=== PATIENT | male | born 1935 | race Caucasian/White ===

== ENCOUNTER 2017-06-13 11:38 | Inpatient (IN) | payer MEDICARE, OTHER ==
[~2017-06-13] VITALS: Ht 177.8 cm; Wt 88.2 kg
[2017-06-13] VITALS (7 sets, daily range): BP systolic 108–137; BP diastolic 52–106
--- NOTE | ~2017-06-13 | PR ---
[place], [place] PROGRESS NOTE NAME: ELLEN ARRIETA UNIT #: [id number] ROOM: 511 DOCTOR: TOBI FISCHER MD BIRTHDATE: [birth year] DOS: SUBJECTIVE: The patient looks much better than yesterday, more awake and alert and able to converse properly. Even during the night, he did get slightly confused, the Reza catheter causing some hematuria, also pulled out his IV and had to be given Haldol x2. He denies having any chest pains or palpitations. His legs do hurt, but otherwise he feels good. OBJECTIVE: VITAL SIGNS: Blood pressure is 117/98, pulse of 117, respirations 22, temperature 97.4. LUNGS: Diminished breath sounds. No wheezes, rales or rhonchi heard. HEART: Regular. ABDOMEN: Obese, soft, nontender. EXTREMITIES: Without any edema. ASSESSMENT AND PLAN: 1. Right lower lobe pneumonia with small pleural effusion. It is parapneumonic on IV antibiotics. Repeat chest x-ray to be ordered today to see whether this is clearing. 2. Acute systolic congestive heart failure from cardiomyopathy, already on p.o. diuretics. 3. Elevated troponin. Medical management only since the patient is not wanting any recent . 4. Hematuria, possibly from trauma. I will leave the Reza catheter and I am afraid if I remove it, then a false lumen may have been created by the trauma, so will continue irrigating as needed and once it is cleared, will put a Reza catheter hopefully in the morning. 5. Metabolic encephalopathy, multifactorial, to be managed with a low dose of Risperdal p.r.n. TOBI FISCHER MD CM:PNTRANS [id number] TOBI FISCHER MD 06/16/17 1431 interface
--- NOTE | ~2017-06-13 | PR ---
[place], [place] PROGRESS NOTE NAME: [facility]A [id number] UNIT #: [id number] ROOM: 509 DOCTOR: LORNA SCRUGGS MD BIRTHDATE: [birth year] DOS: The patient was seen at his bedside with his granddaughter in attendance. SUBJECTIVE: The patient was sleeping, but lying almost flat and breathing easily. I spent most of my time discussing the patient's situation with his granddaughter. He continues to be treated for pneumonia. His lungs have cleared to a great degree. He is also being diuresed and his pedal edema has essentially resolved. Neck veins have also improved. PHYSICAL EXAMINATION: VITAL SIGNS: Today, his pulse is 70 and regular, blood pressure is 94/60. He weighs 86.2 kg and has a body mass index of 27.3. NECK: Supple. He has no jugular distention or hepatojugular reflux. Carotids are full. LUNGS: Respirations are unlabored. He has decreased breath sounds at the bases. HEART: Has a regular rhythm. Heart tones are distant. There is no jugular distention. EXTREMITIES: Showed trace edema bilaterally. LABORATORY DATA: Hemoglobin is 14.7 with hematocrit 50.9, there are 11,200 white cells and 86,000 platelets present. Sodium is 139, potassium 4.7, CO2 of 42, and chloride 93, BUN is 35 and creatinine 1.09. Troponin levels remained mildly elevated at 0.139 three days ago. The patient's echocardiogram on 06/14/2017 showed a mildly dilated left ventricle with globally hypokinetic wall motion and severe septal hypokinesis along with inferoseptal akinesis. The ejection fraction was 30%. Diastole was abnormal with grade 1 diastolic dysfunction. The left atrium was moderately dilated. The aortic valve was sclerotic with normal leaflet excursion. There was decreased mitral excursion consistent with a low flow state. IMPRESSION: 1. Acute respiratory failure, improving. 2. Right middle lobe pneumonia. 3. Ischemic cardiomyopathy. Current ejection fraction is about 30%. 4. Acute on chronic combined systolic and diastolic congestive heart failure. The patient has improved with diuresis. 5. Renal insufficiency, improved with diuresis. PLAN: We have no plans to do any further evaluation of the patient. No advance cardiac diagnostics or therapeutics are being considered. He is improving and we will continue to follow him intermittently. I thank Dr. Mata for asking our advice regarding his care. [place], [place] PROGRESS NOTE NAME: JulietaMiloANATOLIY,ELLEN UNIT #: [id number] ROOM: 509 DOCTOR: LORNA SCRUGGS MD BIRTHDATE: [birth year] LORNA SCRUGGS MD CM:SHONDA [id number] LORNA SCRUGGS MD 06/17/17 1525 interface
--- NOTE | ~2017-06-13 | PR ---
[place], [place] PROGRESS NOTE NAME: ELLEN ARRIETA UNIT #: [id number] ROOM: 511 DOCTOR: ANA SHINE MD BIRTHDATE: [birth year] DOS: 06/14/2017 SUBJECTIVE: Patient on BiPAP, occasionally gets restless, but is more alert and oriented today. OBJECTIVE: VITAL SIGNS: Blood pressure 115/85, heart rate 87 beats per minute, breathing 20 times per minute, temperature 98 degrees Fahrenheit. GENERAL APPEARANCE: Generalized weakness and shortness of breath. HEENT AND NECK: Exam within normal limits. CARDIOVASCULAR SYSTEM: Heart rate is regular in rate and rhythm. S1 and S2 normally audible. LUNGS: Decreased breath sounds on lung auscultation. ABDOMEN: Soft, nontender. No obvious organomegaly. Bowel sounds are present. EXTREMITIES: Without significant cyanosis or edema. IMPRESSION: 1. Patient with acute systolic type congestive heart failure, responding to diuresis. Cardiology following. 2. Patient with acute exacerbation of severe underlying chronic obstructive pulmonary disease with nicotine smoke dependence and CO2 narcosis, is being treated with BiPAP. His orientation has improved. 3. Right middle lobe pneumonia, being treated with antibiotics. 4. History of defibrillator and pacemaker placement, chronic systolic type congestive heart failure with 30% ejection fraction. 5. Coronary artery bypass graft x 4 in 1991 with some elevation of cardiac enzymes. Patient maintains a DNR-CC code status and was very active and functional until a few days ago when he went into respiratory failure. Patient was living by himself and also driving and had complete functions with activities of daily living, was completely independent. We are giving him a chance to recover from the respiratory failure, otherwise all the support including BiPAP would be withdrawn and he can be put on end-of-life care if family agrees. [place], [place] PROGRESS NOTE NAME: ELLEN ARRIETA UNIT #: [id number] ROOM: 511 DOCTOR: ANA SHINE MD BIRTHDATE: [birth year] ANA SHINE MD CM:PNTRANS 22 6 ANA SHINE MD 06/15/17225 interface
--- NOTE | ~2017-06-13 | PR ---
[place], [place] PROGRESS NOTE NAME: ELLEN ARRIETA UNIT #: [id number] ROOM: 509 DOCTOR: ANA SHINE MD BIRTHDATE: [birth year] DOS: 06/19/2017 SUBJECTIVE: The patient was discharged to [facility] yesterday, but it did not happen since there were some issues with insurance. OBJECTIVE: GENERAL APPEARANCE: The patient is more awake and alert. He is still confused, but eating his breakfast. VITAL SIGNS: Blood pressure 103/54, heart rate 61 beats per minute, breathing 16 times per minute, temperature 98 degrees Fahrenheit. HEENT AND NECK: Exam within normal limits. CARDIOVASCULAR SYSTEM: Heart rate is regular in rate and rhythm. S1 and S2 normally audible. LUNGS: Clear to auscultation. ABDOMEN: Soft, nontender. No obvious organomegaly. Bowel sounds are present. EXTREMITIES: Without significant cyanosis or edema. NEUROLOGIC: generalized and mental confusion. IMPRESSION: 1. The patient had adult failure to thrive going to nursing facility with hospice care. He maintained with DNR comfort care code status. The patient's condition improves. He can always be removed from hospice care. At the hospital, he was unable to undergo physical therapy because of extreme mental confusion and lack of understanding, but if he improves at intermediate, he can be started on physical therapy depending on his condition. 2. Mental confusion and delirium still present, although the patient is more alert today. 3. Right middle lobe pneumonia and treated with antibiotics. 4. Ischemic cardiomyopathy with 30% left ventricular ejection fraction. 5. Combined systolic and diastolic type compensated congestive heart failure now. The patient was treated with diuresis for acute congestive heart failure during this admission. 6. Coronary artery disease without chest pains. 7. Defibrillator and pacemaker placement. 8. Sepsis resolved. [place], [place] PROGRESS NOTE NAME: ELLEN ARRIETA UNIT #: [id number] ROOM: 509 DOCTOR: ANA SHINE MD BIRTHDATE: [birth year] ANA SHINE MD CM:PNTRANS [id number] ANA SHINE MD 06/19/17 1352 interface
--- NOTE | ~2017-06-13 | WRIGHTHP ---
[place], [place] PATIENT HISTORY AND PHYSICAL EXAM NAME: [facility]A [id number] UNIT #: [id number] ROOM: 511 DOCTOR: ANA SHINE MD BIRTHDATE: [birth year] DOS: 06/13/2017 HISTORY OF PRESENT ILLNESS: The patient is an 81-year-old gentleman with a past medical history of: 1. COPD and chronic respiratory failure. 2. Continued nicotine smoke dependence. 3. Hypertension. 4. Hyperlipidemia. 5. Systolic type CHF. 6. BPH and urinary retention. The patient presented to [facility] Emergency Department with increasing shortness of breath starting this morning. The patient's pulse ox was 89% at room air. The patient was breathing fast and breathing was labored. Abdomen was tense and distended. The patient was evaluated in the Emergency Department and recommended for admission and further management for acute respiratory failure with hypoxemia from congestive heart failure, pneumonia and acute exacerbation of COPD. After admission, the patient is becoming more alert according to the family. No complaints of any recent chest pain. No other GI or urinary symptoms. REVIEW OF SYSTEMS: LUNGS: Increasing shortness of breath. GASTROINTESTINAL: No nausea, vomiting, diarrhea or constipation. CARDIOVASCULAR: No chest pains or palpitations. PHYSICAL EXAMINATION: GENERAL: The patient is awake, alert, confused, somewhat agitated and restless. VITAL SIGNS: Blood pressure 112/86, heart rate of 80 beats per minute, breathing 22 times per minute, temperature 98 degrees Fahrenheit. HEENT AND NECK: Extraocular movements are intact. Sclerae are anicteric. Oral mucosa is moist and clean. No obvious facial weakness. Neck is supple without any lymphadenopathy. No thyromegaly. No JVD. No carotid arterial bruits. LUNGS: Decreased breath sounds and expiratory wheezing all over. CARDIOVASCULAR SYSTEM: Heart rate is regular in rate and rhythm. S1 and S2 normally audible. No significant murmur or any other abnormal cardiac sounds. ABDOMEN: Soft, nontender. No obvious organomegaly. Bowel sounds are present. No obvious herniation. EXTREMITIES: All extremities are very cold, but pulses are present, although weak. CENTRAL NERVOUS SYSTEM: Generalized weakness, mental confusion. LABORATORY DATA: Blood gas showing pH of 7.28, pCO2 of 66, saturating 97%. First set of cardiac enzymes was 0.136, elevated. BUN and creatinine of 63 and 1.4. ProBNP of 7000. Normal CBC. Lactic acid level was normal at 1.8. IMPRESSION: 1. The patient presenting with acute exacerbation of chronic obstructive pulmonary disease and respiratory failure with CO2 narcosis. The patient to be started on BiPAP, DuoNeb, Solu-Medrol to help him breathe better. [place], [place] PATIENT HISTORY AND PHYSICAL EXAM NAME: ELLEN ARRIETA UNIT #: [id number] ROOM: [facility] DOCTOR: ANA SHINE MD BIRTHDATE: [birth year] 2. Right middle lobe pneumonia, to be treated with IV Zosyn and azithromycin and followed closely. I will also get a sputum culture. 3. Acute systolic type congestive heart failure, with history of defibrillator placement, with 30% left ventricular ejection fraction. The patient to be closely monitored and treated. Property Field Adjuster, Dr. Noble has been consulted. 4. History of defibrillator and pacemaker placement. 5. Mixed hyperlipidemia. 6. Coronary artery bypass graft x 4 in 1991. 7. History of chronic obstructive pulmonary disease. 8. Anemia of chronic disease. 9. History of coronary artery disease and myocardial infarction. 10. History of benign essential hypertension. Monitor blood pressures and treat accordingly. One hour time was spent with the patient and discussing situation with the family. The patient wants to maintain a DNR/comfort care code status for now, but in case more aggressive treatment is needed for a short time, family has agreed to changing his code status with DNR arrest only if needed. ANA SHINE MD CM:HISPHYS:PATIENT HISTORY AND PHYSICAL EXAMINATION [phone] ANA SHINE MD 06/13/17 183 interface
--- NOTE | ~2017-06-13 | PR ---
[place], [place] PROGRESS NOTE NAME: ELLEN ARRIETA UNIT #: [id number] ROOM: 509 DOCTOR: TOBI FSICHER MD BIRTHDATE: [birth year] DOS: SUBJECTIVE: The patient became more confused during the night again, pulled out the catheter, caused more bleeding. At this time, irrigation did not work, so a 3-way catheter was placed in this morning. The catheter is draining clear urine, slightly blood tinged, but no clots were noted. He is much more awake and alert and oriented, even though he does appear to be sleepy, possibly side effect of the Haldol that was given. OBJECTIVE: VITAL SIGNS: Blood pressure is 112/59, pulse of 70, respirations 18, temperature 97.3. LUNGS: Diminished breath sounds, clearer this morning. HEART: Regular. ABDOMEN: Obese, soft, nontender. EXTREMITIES: No edema. ASSESSMENT AND PLAN: 1. Acute systolic congestive heart failure, already on diuretics and maximal treatment plan for left ventricular dysfunction. 2. Chronic obstructive pulmonary disease with mild exacerbation, which has improved. We will discontinue IV steroids, place him on p.o. prednisone. 3. Right middle lobe pneumonia with small effusion, already on antibiotics. Chest x-ray shows slow improvement. The patient does not have a cough or fever. Elevated white cell count is most likely steroid effect. 4. Adult failure to thrive. The patient may benefit from placement for short term rehabilitation. Social service and PT, OT has been consulted. 5. Hematuria, possibly from continued trauma. We will discontinue catheter later today. 6. Elevated troponin. Continue medical management. TOBI FISCHER MD CM:PNTRANS [phone] [id number] TOBI FISCHER MD 06/17/1704 interface
--- NOTE | ~2017-06-13 | DS ---
[place], [place] DISCHARGE SUMMARY NAME: ELLEN ARRIETA UNIT #: [id number] ROOM: 509 DOCTOR: ANA SHINE MD BIRTHDATE: [birth year] DOS: 06/18/2017 DISCHARGE DIAGNOSES: 1. Adult failure to thrive and unable to recover with adequate treatment for pneumonia and congestive heart failure and respiratory failure. 2. Mental confusion and delirium. 3. Right middle lobe pneumonia. 4. Ischemic cardiomyopathy with 30% left ventricular ejection fraction. 5. Acute on chronic combined systolic and diastolic type congestive heart failure. 6. Coronary artery disease of [place] vessel, with coronary artery bypass graft, 4 grafts in 1991. 7. Defibrillator and pacemaker placement. 8. Chronic obstructive pulmonary disease exacerbation. 9. Continued nicotine smoke dependence. 10. Benign essential hypertension. 11. Mixed hyperlipidemia. 12. Benign prostatic hypertrophy and acute urinary retention, requiring Reza catheter. 13. Thrombocytopenia 14. Sepsis 15. Pneumonia 16. Respiratory failure 17. Leukocytosis 18. Hypotension. HOSPITAL COURSE: The patient presented to the [facility] with hypoxemia and acute over chronic respiratory failure with right middle lobe pneumonia. The patient was admitted and treated with BiPAP, oxygen, bronchodilators and his condition did not improve despite of adequate treatment. The patient was seen by advanced manufacturing associate, Dr. Dickerson. Acute both systolic and diastolic type congestive heart failure with 30% left ventricular ejection fraction, was treated with diuresis and followed by Cardiology. Coronary artery disease, with 4-vessel bypass grafts in 1991, minimal elevation of cardiac enzymes. Exacerbation of COPD, treated with bronchodilators, oxygen, antibiotics and improved. History of benign essential hypertension, with controlled blood pressures. Acute urinary retention, treated with straight cath and now with Reza catheter to keep him comfortable. The patient was treated extensively as mentioned above and his condition has not improved. He still remains confused and agitated and was treated with Haldol on as needed basis, oxygen, breathing treatments, antibiotics. As the patient's [place], [place] DISCHARGE SUMMARY NAME: ELLEN ARRIETA UNIT #: [id number] ROOM: 509 DOCTOR: ANA SHINE MD BIRTHDATE: [birth year] condition was not improving and he has marked organ failure, the patient's durable power of health care attorney and his daughter has requested hospice care at the half-way. [facility] to follow the patient. Urine cultures were negative. White cell count 11,000, hemoglobin 14.7, platelets 86,000. DISCHARGE MANAGEMENT: Morphine 10 mg every hour concentrate as needed for pain and agitation, Haldol 1 mg every 4 hours as needed oral or IM for agitation, Coreg 3.125 mg b.i.d., furosemide 40 mg daily, lisinopril 5 mg a day, DuoNeb every 4 hours and Pulmicort 0.5 mg b.i.d., Flomax 0.4 mg a day. Consult [facility] to follow. One hour time spent in patient discharge, procedures, discussing situation with durable power of health care attorney and daughter and arranging for patient to be discharged to half-way. ANA SHINE MD CM:NANCY [phone] ANA SHINE MD 06/18/172125 interface
--- NOTE | ~2017-06-13 | PR ---
[place], [place] PROGRESS NOTE NAME: ELLEN ARRIETA UNIT #: [id number] ROOM: 511 DOCTOR: TOBI FISCHER MD BIRTHDATE: [birth year] DOS: SUBJECTIVE: The patient is quite sedated, does not respond to call. He moaned ____ rolled over slightly. OBJECTIVE: VITAL SIGNS: Blood pressure is 109/63, pulse of 90s, respirations 18-20, temperature 97.9. LUNGS: Diminished breath sounds. A few scattered wheezes heard. HEART: Regular. ABDOMEN: Obese, soft, nontender. EXTREMITIES: Without any edema. ASSESSMENT AND PLAN: 1. Acute hypoxic respiratory failure. The patient has been on BiPAP with Ativan, which possibly is keeping him sedated and needing the BiPAP. We will discontinue Ativan and try to take him off the BiPAP and see how he does. His current code status is DNR-CC arrest, so BiPAP is unnecessary. 2. Chronic obstructive pulmonary disease with chronic respiratory failure, increase IV steroids. 3. Right middle lobe pneumonia with parapneumonic pleural effusion, on IV antibiotics, possible gram-negative. 4. Cardiomyopathy with ejection fraction of 30%, maximize medications. No evidence of acute congestive heart failure. TOBI FISCHER MD CM:PNTRANS [id number] TOBI FISCHER MD 06/15/17 1158 interface
--- NOTE | ~2017-06-13 | CON ---
[place], [place] REPORT OF CONSULTATION NAME: ELLEN ARRIETA UNIT #: [id number] ROOM: 511 DOCTOR: LORNA SCRUGGS MD BIRTHDATE: [birth year] DOS: 06/13/2017 CARDIOLOGY CONSULTATION REASON FOR CONSULTATION: Respiratory failure, history of heart failure. HISTORY OF PRESENT ILLNESS: The patient is an 81-year-old man who is known to have a history of heart failure, obstructive lung disease, continued cigarette abuse, hyperlipidemia, and hypertension. He is typically followed by the [facility] and also followed by Dr. Austin Brown, a pump tester at the [facility] [place] in [place]. I got most of the history from the chart and from his granddaughter who is his power of magnetic grinder operator. The patient has been chronically ill, but remains very active. He lives independently and drives daily to the half-way where his , who has dementia, resides. He takes her out frequently and helps manage her welfare on a day-to-day basis. The old records indicate that he is status post bypass surgery and has had several myocardial infarctions. He also does have a biventricular ICD in place. An echocardiogram obtained on 06/28/2016 showed a mildly dilated left ventricle with moderate concentric left ventricular hypertrophy. Overall systolic function was moderately impaired with an estimated ejection fraction of 30%. The right atrium was enlarged. The left atrium was severely enlarged. There was moderate aortic stenosis with a mean gradient of 9 mmHg and Doppler evidence for mildly elevated right ventricular systolic pressures. The patient apparently was well a little over a week ago. One week ago today, his granddaughter went to visit him and found that he was very dyspneic. She also noted that there was blood in the toilet and he admitted that he had been urinating blood. The granddaughter discussed ER evaluation, but he refused. He continued to refuse despite multiple requests from his granddaughter until today. He finally did admit that he was feeling poorly and would consent to come to the Emergency Room. However, he did insist that his status be comfort care only. The patient's chest x-ray does show evidence for heart failure and a right middle lobe pneumonia. He is being treated with antibiotics and BiPAP. We were asked to help with the management of his cardiac status and heart failure. PAST MEDICAL HISTORY: Includes; 1. Atherosclerotic heart disease. 2. History of previous bypass surgery and multiple myocardial infarctions. 3. Biventricular ICD in place. 4. History of hypertension. 5. History of hyperlipidemia. 6. History of COPD with ongoing cigarette abuse. 7. Chronic systolic congestive heart failure. 8. Recurrent respiratory failure. MEDICATIONS PRIOR TO ADMISSION: Atorvastatin 40 mg daily, furosemide 20 mg daily, lisinopril 10 mg daily, magnesium chloride 64 mg daily, and tamsulosin 0.4 mg daily. [place], [place] REPORT OF CONSULTATION NAME: ELLEN ARRIETA UNIT #: [id number] ROOM: [facility] DOCTOR: LORNA SCRUGGS MD BIRTHDATE: [birth year] ALLERGIES: The patient has no known drug allergies. REVIEW OF SYSTEMS: Impossible. The patient is on BiPAP and mildly sedated. He is unable to answer any questions. SOCIAL HISTORY: The patient is . His has dementia and lives in a half-way. He lives alone, but spends a lot of time with his . The patient is a smoker and continues to smoke at least a half pack of cigarettes a day. PHYSICAL EXAMINATION: GENERAL: The patient is an elderly white male who is sedated and on BiPAP. VITAL SIGNS: Pulse is 80 and has frequent premature contractions, blood pressure is 112/86, he is afebrile. He weighs 103.4 kg and has a body mass index of 32.7. HEENT: Normocephalic, atraumatic. Extraocular muscles appear to be intact. He is on BiPAP. Oral mucosa is moist. NECK: Supple. He does have jugular distention almost to the angle of the jaw when sitting in a 45-degree angle. Carotids are full. I heard no bruits. LUNGS: Respirations are per BiPAP. He appears comfortable at this time, but is sedated. He does have markedly prolonged expiratory phases and scattered wheezes with crackles at the right base. CARDIOVASCULAR: His heart has distant tones. He has a regular rhythm with frequent premature beats. An S4 gallop was present on occasion. I could not hear an S3. I could not hear any murmurs. The PMI is slightly displaced laterally. ABDOMEN: Soft and normally active. It is nontender. EXTREMITIES: Show 2+ edema of the shins and calves bilaterally. Pedal pulses are absent. LABORATORY DATA: I reviewed his electrocardiogram. He shows sinus rhythm with ventricular pacing. He has very frequent premature ventricular contractions. Hemoglobin is 16.2 with hematocrit 54.7. There are 8600 white cells and 122,000 platelets. Sodium is 141, potassium 5.1, BUN 63, creatinine 1.36. ABG show a pH of 7.286 with a pCO2 of 66.2, a pO2 of 93.7, and a bicarb of 30.7. IMPRESSIONS: 1. Acute respiratory failure. 2. Right middle lobe pneumonia. 3. History of ischemic cardiomyopathy. 4. [id number] combined systolic and diastolic congestive heart failure. PLAN: The patient has declared that he wants to be a comfort care. For now, we will continue supportive measures with BiPAP, antibiotics and I will increase his diuresis. An echo has already been ordered. We will review that when it is available. I will also request old records from his regular pump tester, Dr. Austin Brown, in the [facility] [place] in [place]. [place], [place] REPORT OF CONSULTATION NAME: ELLEN ARRIETA UNIT #: [id number] ROOM: [facility] DOCTOR: LORNA SCRUGGS MD BIRTHDATE: [address] Mata for asking our advice regarding the patient's care. LORNA SCRUGGS MD CM:CONSTR:REPORT OF CONSULTATION 1950 06/14/17 0427 interface
[~2017-06-13 11:38] MED LIST: ALDACTONE25 MG PO; ASPIRIN81 M1; ASPIRIN81 M1 PO; K-TAB10 MEQ PO; KLOR-CON 88 MEQ; LASIX20 MG PO; LISINOPRIL HCTZ1 TA1 PO; LISINOPRIL10 M1 PO; LISINOPRIL10 MG; LOPRESSOR50 M1 PO; MAG PO; METOPROLOL25 MG; PREDNISONE10 MG PO; SIMVASTATIN80 MG; TERAZOSIN HCL2 M1 PO; ZOCOR80 MG PO; [UNRECOGNIZED DRUG - OTHER] INH
[2017-06-13 11:59] LABS: BASO % 0.5 % (0.0-1.0); EOS # 0.1 10*3/uL (0.0-0.4); EOS % 0.6 % (1.0-4.0); HEMATOCRIT 54.7 % (42.0-52.0); HEMOGLOBIN 16.2 g/dl (14.0-18.0); LYMPH # 0.9 10*3/uL (1.3-4.4); LYMPH % 9.9 % (27.0-41.0); MEAN CORPUSCULAR HGB 28.7 pg (27.0-31.0); MEAN CORPUSCULAR HGB CONC 29.6 g/dl (33.0-37.0); MEAN PLATELET VOLUME 10.4 fl (9.6-12.3); MONO # 0.7 10*3/uL (0.1-1.0); MONO % 7.8 % (3.0-9.0); PLATELET COUNT AUTOMATED 122 10*3/uL (130-400); RED BLOOD COUNT 5.64 10*6/uL (4.50-5.90); RED CELL DISTRI WIDTH 15.7 % (0-14.5); WHITE BLOOD COUNT 8.6 10*3/uL (4.8-10.8)
[2017-06-13 12:08] LABS: ACT PARTIAL THROMBO TIME 26.4 SECONDS (20.8-31.5); INTERNATIONAL NORM RATIO 1.2 (2.0-3.5)
[2017-06-13 12:14] LABS: ALBUMIN 3.3 gm/dl (3.1-4.5); CREATININE 1.39 mg/dL (0.70-1.30); POTASSIUM 5.1 mmol/L (3.5-5.1)
[2017-06-13 12:24] LABS: TROPONIN I 0.155 ng/ml (<0.045)
[2017-06-13 13:02] LABS: BILIRUBIN NEGATIVE (NEGATIVE); BLOOD 3+ (NEGATIVE); CLARITY CLOUDY (CLEAR); COLOR YELLOW (YELLOW); GLUCOSE NEGATIVE (NEGATIVE); KETONE NEGATIVE (NEGATIVE); LEUKO ESTERASE 2+ (NEGATIVE); NITRITE NEGATIVE (NEGATIVE); PH 8.5 (5.0-9.0); SPECIFIC GRAVITY 1.015 (1.005-1.030)
[2017-06-13 13:18] LABS: BACTERIA 4+
[2017-06-13 13:19] LABS: RBC 51-100 rbc/hpf (0-2); WBC 31-40 wbc/hpf (0-5)
[2017-06-13 13:32] LABS: ABG BASE EXCESS 1.9 mmol/L (-2.0-2.0); ABG HCO3 30.7 mmol/l (22-26); ABG O2 SATURATION 96.8 % (95-97); ARTERIAL BLOOD GAS PCO2 66.2 mmHg (35-45); ARTERIAL BLOOD GAS PH 7.286 (7.35-7.45); ARTERIAL BLOOD GAS PO2 93.7 mmHg (80-90)
[2017-06-13] MEDS ORDERED: ATORVASTATIN CA40 M1 PO (13:58)
[2017-06-13] MEDS ORDERED: FLOMAX0.4 MG PO (13:58)
[2017-06-13] MEDS ORDERED: MAG6464 MG PO (14:44)
[2017-06-14] VITALS: BP 100/56
[2017-06-14 08:00] VITALS: BP 104/76
[2017-06-14 08:21] LABS: HEMATOCRIT 54.4 % (42.0-52.0); HEMOGLOBIN 16.1 g/dl (14.0-18.0); MEAN CELL VOLUME 95.4 fl (80.0-94.0); MEAN CORPUSCULAR HGB 28.2 pg (27.0-31.0); MEAN CORPUSCULAR HGB CONC 29.6 g/dl (33.0-37.0); MEAN PLATELET VOLUME 10.7 fl (9.6-12.3); PLATELET COUNT AUTOMATED 105 10*3/uL (130-400); RED CELL DISTRI WIDTH 15.8 % (0-14.5); WHITE BLOOD COUNT 7.1 10*3/uL (4.8-10.8)
[2017-06-14 08:32] LABS: CREATININE 1.57 mg/dL (0.70-1.30); POTASSIUM 4.4 mmol/L (3.5-5.1)
[2017-06-14 08:39] LABS: TOTAL CELLS COUNTED 100 #CELLS
[2017-06-14 08:40] LABS: PLATELET SUFFICIENCY LOW (NORMAL)
[2017-06-14 09:24] LABS: ABG BASE EXCESS 5.9 mmol/L (-2.0-2.0); ABG HCO3 33.7 mmol/l (22-26); ABG O2 SATURATION 91.2 % (95-97); ARTERIAL BLOOD GAS PCO2 62.5 mmHg (35-45); ARTERIAL BLOOD GAS PH 7.35 (7.35-7.45); ARTERIAL BLOOD GAS PO2 63.6 mmHg (80-90)
[2017-06-14 12:00] VITALS: BP 110/72
[2017-06-14 16:00] VITALS: BP 115/85
[2017-06-14 20:00] VITALS: BP 129/69
[2017-06-15] VITALS: BP 109/63
[2017-06-15 08:00] VITALS: BP 110/68
[2017-06-15 12:00] VITALS: BP 133/70
[2017-06-15 16:00] VITALS: BP 112/70
[2017-06-15 20:00] VITALS: BP 108/80
[2017-06-16] VITALS: BP 132/62
[2017-06-16 08:00] VITALS: BP 117/98
[2017-06-16 12:16] VITALS: BP 132/81
[2017-06-16 16:00] VITALS: BP 136/82
[2017-06-16 20:00] VITALS: BP 119/65
[2017-06-17] VITALS: BP 112/59
[2017-06-17 06:30] LABS: BASO % 0.1 % (0.0-1.0); HEMATOCRIT 50.9 % (42.0-52.0); HEMOGLOBIN 14.7 g/dl (14.0-18.0); LYMPH # 0.5 10*3/uL (1.3-4.4); MEAN CELL VOLUME 97.1 fl (80.0-94.0); MEAN CORPUSCULAR HGB 28.1 pg (27.0-31.0); MEAN CORPUSCULAR HGB CONC 28.9 g/dl (33.0-37.0); MEAN PLATELET VOLUME 11.4 fl (9.6-12.3); MONO # 0.8 10*3/uL (0.1-1.0); MONO % 7.1 % (3.0-9.0); NEUT # 9.9 10*3/uL (2.3-7.9); NEUT % 88.4 % (47.0-73.0); PLATELET COUNT AUTOMATED 86 10*3/uL (130-400); RED BLOOD COUNT 5.24 10*6/uL (4.50-5.90); RED CELL DISTRI WIDTH 15.4 % (0-14.5); WHITE BLOOD COUNT 11.2 10*3/uL (4.8-10.8)
[2017-06-17 06:36] LABS: BUN 35 mg/dl (7-24); CHLORIDE 93 mmol/L (98-107); CREATININE 1.09 mg/dL (0.70-1.30); POTASSIUM 4.7 mmol/L (3.5-5.1); SODIUM 139 mmol/L (136-145)
[2017-06-17 08:00] VITALS: BP 132/70
[2017-06-17 12:00] VITALS: BP 94/60
[2017-06-17 16:00] VITALS: BP 131/60
[2017-06-17 20:00] VITALS: BP 103/56
[2017-06-18] VITALS: BP 105/56
[2017-06-18 08:00] VITALS: BP 123/87
[2017-06-18 12:00] VITALS: BP 94/60
[2017-06-18 16:00] VITALS: BP 93/54
[2017-06-18] MEDS ORDERED: MORPHINE S100 MG/5 M PO (17:23)
[2017-06-18] MEDS ORDERED: HALOPERIDOL5 MG/1 M1 IM (17:23)
[2017-06-18] MEDS ORDERED: CARVEDILOL3.125 MG PO (17:23)
[2017-06-18 20:00] VITALS: BP 105/6
[2017-06-19] VITALS: BP 106/59
[2017-06-19 08:00] VITALS: BP 103/54
[2017-06-19] MEDS ORDERED: AUGMENTIN 875-875 MG PO (10:49)
== END 2017-06-19 12:40 | disposition other institution (70) | DRG 871 ==
LOC: ED 11:38 → 5E 12:34 → EDHOLD 12:34 → 5E 12:41
PROVIDERS: Emergency Medicine; Internal Medicine; ADMIT Internal Medicine
PROC: 5A09357 Assistance with Respiratory Ventilation, Less than 24 Consecutive Hours, Continuous Positive Airway Pressure (ICD-10-PCS; principal; 2017-06-13)
PROC: 5A09357 Assistance with Respiratory Ventilation, Less than 24 Consecutive Hours, Continuous Positive Airway Pressure (ICD-10-PCS; 2017-06-14)
DX: A41.9 Sepsis, unspecified organism (principal); I50.43 Acute on chronic combined systolic (congestive) and diastolic (congestive) heart failure; J96.21 Acute and chronic respiratory failure with hypoxia; G93.41 Metabolic encephalopathy; I95.9 Hypotension, unspecified; J18.1 Lobar pneumonia, unspecified organism; D69.6 Thrombocytopenia, unspecified; J44.0 Chronic obstructive pulmonary disease with (acute) lower respiratory infection; I11.0 Hypertensive heart disease with heart failure; J44.1 Chronic obstructive pulmonary disease with (acute) exacerbation; I25.5 Ischemic cardiomyopathy; I25.10 Atherosclerotic heart disease of native coronary artery without angina pectoris; R33.8 Other retention of urine; N40.1 Benign prostatic hyperplasia with lower urinary tract symptoms; D63.8 Anemia in other chronic diseases classified elsewhere; N28.9 Disorder of kidney and ureter, unspecified; R62.7 Adult failure to thrive; R31.9 Hematuria, unspecified; F17.210 Nicotine dependence, cigarettes, uncomplicated; E78.2 Mixed hyperlipidemia; Z51.5 Encounter for palliative care; Z66 Do not resuscitate; Z95.810 Presence of automatic (implantable) cardiac defibrillator; Z95.1 Presence of aortocoronary bypass graft; I25.2 Old myocardial infarction; Z98.49 Cataract extraction status, unspecified eye; Z82.49 Family history of ischemic heart disease and other diseases of the circulatory system; Z82.3 Family history of stroke

== ENCOUNTER → 2019-05-27 | Outpatient (CLI) | payer OTHER ==
[~2019-05-27] MED LIST changes: +ADVAIR 250/501 EA PO; +ALBUTEROL2.5 MG/0.5 INH; +ASPIR LOW81 MG PO; +ATORVASTATIN CA20 M1 PO; +ATORVASTATIN CA40 M1 PO; +AUGMENTIN 875-875 MG PO; +BUMETANIDE2 MG PO; +CARVEDILOL3.125 MG PO; +DUTASTERIDE0.5 MG PO; +FLOMAX0.4 MG PO; +FUROSEMIDE40 MG PO; +GABAPENTIN100 M2 PO; +HALOPERIDOL5 MG/1 M1 IM; +INCRUSE ELLI62.5 MCG INH; +LISINOPRIL2.5 MG PO; +MAG6464 MG PO; +METOPROLOL SUCC25 M2 PO; +MORPHINE S100 MG/5 M PO; +PEG3350238 GM PO; +POTASSIUM CHLO20 ME4 PO; +TAMSULOSIN HCL0.4 MG PO; +VITAMIN D34000 UNIT PO
== END | disposition home or self-care (01) ==
LOC: ORTHO 00:47
DX: M17.11 Unilateral primary osteoarthritis, right knee (principal)

== ENCOUNTER 2019-06-21 13:28 | Emergency (ER) | payer OTHER ==
[~2019-06-21] VITALS: Ht 182.8 cm; Wt 79.4 kg
--- NOTE | ~2019-06-21 | EKG ---
[place], [place] ELECTROCARDIOGRAM REPORT NAME: ELLEN العراقي UNIT #: [id number] ROOM: DOCTOR: EPIPHANY DRAFT REPORT BIRTHDATE: [birth year] [facility] Test Date: 2019-06-21 Test Time: 14:30:39 Pat Name: ELLEN العراقي Department: Room: Gender: Tire Sorter: : 1935 Requested By: TORRIE LEHMAN Order Number: [id number] Reading MD: Melani Lackey Measurements Intervals [place] Rate: 70 P: 0 ND: 188 QRS: 197 QRSD: 145 T: 73 QT: 497 QTc: 537 Interpretive Statements ? Atrial Fibrillation/Flutter Ventricular-paced rhythm Compared to ECG 10/24/2018 17:11:34 Intraventricular conduction delay no longer present ST (T wave) deviation no longer present Electronically Signed On 06-22-2019 11:13:15 PST by Melani Lackey CM:EKGRPT:ELECTROCARDIOGRAM REPORT 1430 [id number] TORRIE CANNON DRAFT REPORT TORRIE LEHMAN MD
[2019-06-21 13:28] VITALS: BP 107/57
[2019-06-21 14:32] LABS: BASO # 0.1 10*3/uL (0.0-0.1); BASO % 0.7 % (0.0-1.0); EOS # 0.2 10*3/uL (0.0-0.4); EOS % 2.4 % (1.0-4.0); HEMATOCRIT 34.1 % (42.0-52.0); HEMOGLOBIN 10.4 g/dl (14.0-18.0); LYMPH # 0.7 10*3/uL (1.3-4.4); LYMPH % 9.9 % (27.0-41.0); MEAN CELL VOLUME 100.9 fl (80.0-94.0); MEAN CORPUSCULAR HGB 30.8 pg (27.0-31.0); MEAN CORPUSCULAR HGB CONC 30.5 g/dl (33.0-37.0); MEAN PLATELET VOLUME 9.4 fl (9.6-12.3); MONO # 0.7 10*3/uL (0.1-1.0); MONO % 9.4 % (3.0-9.0); NEUT # 5.5 10*3/uL (2.3-7.9); PLATELET COUNT AUTOMATED 172 10*3/uL (130-400); RED BLOOD COUNT 3.38 10*6/uL (4.50-5.90); RED CELL DISTRI WIDTH 15.3 % (0-14.5); WHITE BLOOD COUNT 7.1 10*3/uL (4.8-10.8)
[2019-06-21 14:41] LABS: ACT PARTIAL THROMBO TIME 27.6 SECONDS (20.0-32.1); INTERNATIONAL NORM RATIO 1.1 (2.0-3.5)
[2019-06-21 14:47] LABS: ALBUMIN 2.9 gm/dl (3.1-4.5); ALKALINE PHOSPHATASE 89 U/L (45-117); BUN 25 mg/dl (7-24); CHLORIDE 100 mmol/L (98-107); CREATININE 1.26 mg/dL (0.70-1.30); POTASSIUM 4.4 mmol/L (3.5-5.1); SGOT/AST 20 IU/L (3-35); SGPT/ALT 17 U/L (12-78); SODIUM 139 mmol/L (136-145); TOTAL PROTEIN 6.6 gm/dL (6.4-8.2)
== END 2019-06-21 19:30 | disposition home or self-care (01) ==
LOC: ED 13:28
PROVIDERS: Emergency Medicine
DX: R55 Syncope and collapse (principal); M79.89 Other specified soft tissue disorders; I50.9 Heart failure, unspecified; I11.0 Hypertensive heart disease with heart failure; E78.5 Hyperlipidemia, unspecified; E66.9 Obesity, unspecified; J44.9 Chronic obstructive pulmonary disease, unspecified; I25.10 Atherosclerotic heart disease of native coronary artery without angina pectoris; I25.2 Old myocardial infarction; E78.00 Pure hypercholesterolemia, unspecified; F17.200 Nicotine dependence, unspecified, uncomplicated; Z68.34 Body mass index [BMI] 34.0-34.9, adult; Z79.899 Other long term (current) drug therapy; Z79.82 Long term (current) use of aspirin; Z99.81 Dependence on supplemental oxygen; Z95.1 Presence of aortocoronary bypass graft; W18.39XA Other fall on same level, initial encounter; Y93.89 Activity, other specified; Y92.89 Other specified places as the place of occurrence of the external cause; Y99.8 Other external cause status